=== PATIENT | male | born 1960 | race Caucasian/White ===

== ENCOUNTER 2023-11-11 06:41 | Day surgery (SDC) | payer OTHER, SELFPAY ==
[2023-09-23 11:46] VITALS: BMI 26.4
[2023-09-23 12:16] LABS: % Basophils 0.3 % (0-2); % Eosinophils 2.9 % (0-6); % Immature Granulocytes 0.3 % (0-0.5); % Lymphocytes 22.4 % (20.5-51.1); % Monocytes 8.6 % (1.7-9.3); % Neutrophils 65.5 % (42.2-75.2); Absolute Eosinophils 0.2 10^3/uL (0-0.7); Absolute Lymphocytes 1.5 10^3/uL (1.2-3.4); Absolute Monocytes 0.6 10^3/uL (0.1-0.6); Absolute Neutrophils 4.5 10^3/uL (1.4-6.5); Hematocrit 42.3 % (39.0-52.0); Hemoglobin 14.6 g/dL (13.0-18.0); Mean Corp Hgb Conc. 34.5 g/dL (33.0-37.0); Mean Corpuscular Hgb 30.9 pg (27.0-31.0); Mean Corpuscular Volume 89.6 fL (80.0-94.0); Mean Platelet Volume 9.5 fL (7.4-10.4); Nucleated Red Blood Cells % 0 % (-); Platelet Count 237 10^3/uL (130-400); Red Blood Cell Count 4.72 10^6/uL (4.70-6.10); Red Cell Dist. Width 12.6 % (11.5-14.5); White Blood Cell Count 6.9 10^3/uL (4.8-10.8)
[2023-09-23 12:23] LABS: INR 1.16; PT 15.1 Sec (11.4-14.6)
[2023-09-23 12:38] LABS: ALT (SGPT) 41 U/L (0-50); AST (SGOT) 32 U/L (17-59); Albumin 4.4 g/dl (3.5-5.0); Alkaline Phosphatase 69 U/L (38-126); Blood Urea Nitrogen 15 mg/dl (9-20); Calcium 9.2 mg/dl (8.4-10.2); Carbon Dioxide 22 mmol/L (22-30); Chloride 102 mmol/L (98-107); Estimated Creatinine Clearance 84 ml/min; Glucose 125 mg/dl (70-99); Magnesium 2.2 mg/dl (1.6-2.3); Potassium 4.2 mmol/L (3.5-5.1); Sodium 138 mmol/L (135-145); Total Bilirubin 0.8 mg/dl (0.2-1.3); Total Protein 7.2 g/dl (6.3-8.2); eGFR > 60.00
--- NOTE | 2023-09-23 13:04 | HPS.HSE ---
Family Physician
-
Family Physician: NAOMI Guzman
Chief Complaint
-
Paroxysmal atrial fibrillation.
History of Present Illness
The patient is a 63 year old male presenting today for paroxysmal atrial fibrillation. The patient describes intermittent heart palpitations secondary to this diagnosis. He previously underwent 2 unsuccessful cardioversions for his atrial
fibrillation. He is on current pharmacological therapy with Metoprolol Succinate. He takes Eliquis for a [id number] of 1. He notes that his current palpitations can greatly interfere with his activities of daily living and do overall impact his
quality of life. He is interested in pursuing pulmonary vein isolation for further arrhythmia management. He denies any current complaints today such as chest pain, shortness of breath, nausea, vomiting, diarrhea, lightheadedness, dizziness, cough,
sore throat, or fever.
Medical History
Past Medical History
Past Medical History: Reports Other
Additional Past Medical History:
1. Paroxysmal atrial fibrillation, status post cardioversion x2; pharmacological therapy with Metoprolol Succinate, oral anticoagulation with Eliquis.
2. Hyperlipidemia.
3. Venous varicosities.
4. GERD.
5. Remote GI ulcer without bleed.
6. Colon polyps.
7. Diverticulosis.
8. Hemorrhoids.
9. Subdural hematoma 09/2014.
10. Osteoarthritis.
11. Basal cell carcinoma, left cheek, status post excision.
Past Surgical History: Reports Other
Additional Past Surgical History:
1. Cardioversion x2.
2. Left inguinal hernia repair.
3. Dental extractions and implantations.
4. Colonoscopy.
Social History
Tobacco: Non-smoker
Alcohol: Occasional
Personal:
Living: Other (He lives in a 2 story home with his and [id number]. )
Family History
Family History: Not pertinent
Allergies / Home Medications
Allergy/Medication List:
Home medications:
1. Eliquis 5 mg p.o. twice a day.
2. Atorvastatin 20 mg p.o. daily.
3. Cholecalciferol 50 mcg p.o. daily.
4. Lycopene 10 mg p.o. daily.
5. Metoprolol Succinate 12.5 mg p.o. twice a day.
Allergies: No known allergies.
Review of Systems
-
A 12 point ROS was completed and negative except as noted: Yes
Physical Exam
Vital Signs
Blood pressure 119/73. Heart rate 73. Respirations 18. Pulse ox 97% on room air.
Height 5 feet, 10 inches. Weight 83.6 kg. BMI 26.4.
Physical Exam
General: Well Developed, Well Nourished and No Apparent Distress
HEENT: NormoCephalic, Moist mucous membranes, Atraumatic and PERRLA
Respiratory: Clear
Cardiac: Regular Rhythm
GI: Soft, Non Tender and Non Distended
Musculoskeletal: No Edema and Normal Gait & Station
Skin: Warm and Dry
Neuro: AO x 3 and Nonfocal/grossly intact
Laboratory Results
-
09/23/23 11:55
09/23/23 11:55
Laboratory Results
PT 15.1 Sec (11.4-14.6) H 09/23/23 11:55
INR 1.16 09/23/23 11:55
Total Bilirubin 0.8 mg/dl (0.2-1.3) 09/23/23 11:55
AST 32 U/L (17-59) 09/23/23 11:55
ALT 41 U/L (0-50) 09/23/23 11:55
Alkaline Phosphatase 69 U/L (38-126) 09/23/23 11:55
Blood type A negative.
EKG 09/23/2023: Normal sinus rhythm. Inferior infarct, cited on or before August 22, 2023.
Chest CT 09/23/2023: Conventional pulmonary venous anatomy. The esophagus passes posterior to the junction of the posterior wall of the left inferior pulmonary vein with the posterior left atrial wall. No evidence for left atrial thrombus.�
Echocardiogram 08/08/2023: Normal left ventricular size, wall thickness and systolic function.�No regional wall motion abnormalities are seen. Estimated ejection fraction is 55- 60%. Normal diastolic function.
Impression/Plan
-
IMPRESSION/PLAN:
1. Paroxysmal atrial fibrillation: The patient is in need of pulmonary vein isolation with Dr. Asher Chairez on 09/25/2023. The benefits and risks of the procedure have been explained to the patient. The patient understands these risks and wishes to
proceed. He will not be required to undergo a pre-procedural transesophageal echocardiogram as he has been compliant with his home oral anticoagulation. He is aware to hold his Eliquis the night before and morning of his procedure.
[2023-10-23 07:20] VITALS: BMI 27.3
[2023-10-23 08:11] LABS: % Basophils 0.6 % (0-2); % Eosinophils 3.5 % (0-6); % Immature Granulocytes 0.6 % (0-0.5); % Lymphocytes 27.9 % (20.5-51.1); % Monocytes 10.3 % (1.7-9.3); % Neutrophils 57.1 % (42.2-75.2); Absolute Eosinophils 0.2 10^3/uL (0-0.7); Absolute Lymphocytes 1.4 10^3/uL (1.2-3.4); Absolute Monocytes 0.5 10^3/uL (0.1-0.6); Mean Corp Hgb Conc. 34.9 g/dL (33.0-37.0); Mean Corpuscular Hgb 30.8 pg (27.0-31.0); Mean Corpuscular Volume 88.3 fL (80.0-94.0); Mean Platelet Volume 9.4 fL (7.4-10.4); Nucleated Red Blood Cells % 0 % (-); Platelet Count 249 10^3/uL (130-400); Red Blood Cell Count 4.87 10^6/uL (4.70-6.10); Red Cell Dist. Width 12.7 % (11.5-14.5); White Blood Cell Count 5.2 10^3/uL (4.8-10.8)
[2023-10-23 08:16] LABS: PT 14.4 Sec (11.4-14.6)
[2023-10-23 08:28] LABS: ALT (SGPT) 38 U/L (0-50); AST (SGOT) 30 U/L (17-59); Albumin 4.3 g/dl (3.5-5.0); Alkaline Phosphatase 62 U/L (38-126); Blood Urea Nitrogen 15 mg/dl (9-20); Calcium 9.6 mg/dl (8.4-10.2); Carbon Dioxide 27 mmol/L (22-30); Chloride 100 mmol/L (98-107); Estimated Creatinine Clearance 84 ml/min; Glucose 108 mg/dl (70-99); Magnesium 2.4 mg/dl (1.6-2.3); Potassium 4.1 mmol/L (3.5-5.1); Sodium 137 mmol/L (135-145); eGFR > 60.00
[2023-11-11] VITALS (14 sets, daily range): BP systolic 89–147; BP diastolic 47–92; BMI 25.8
[2023-11-11 09:00] LABS: ACT-LR - POC 263 Seconds (116-155)
[2023-11-11 09:20] LABS: ACT-LR - POC 321 Seconds (116-155)
[2023-11-11 09:44] LABS: ACT-LR - POC 332 Seconds (116-155)
[2023-11-11 10:06] LABS: ACT-LR - POC 335 Seconds (116-155)
[2023-11-11 10:42] LABS: ACT-LR - POC 229 Seconds (116-155)
--- NOTE | 2023-11-11 11:57 | ITS.CL.ABL ---
[facility] - Ablation
Ablation
Procedure Report:
Primary Care: Concepcion Farley NP
Procedure Date: 11/11/2023
Patient History:
Pleasant 63-year-old male past medical history significant for dyslipidemia and symptomatic paroxysmal atrial fibrillation.
Indication:
Symptomatic paroxysmal atrial fibrillation
Failed cardioversion with eventual success (times 05 June 2023)
Arrhythmia Specific History:
Prior Medical Therapies for Rate and Rhythm Control:
[ ] Beta-soni
[ ] Calcium channel-soni
[ ] Amiodarone
[ ] Dronederone
[ ] Sotalol
[ ] Flecainide
[ ] Dofetilide
[ ] Options limited by bradycardia
[ ] Options limited by comorbid renal disease
Prior Procedural Therapies for AF/AFL:
X Cardioversion
[ ] Pulmonary Vein Isolation
[ ] Posterior Wall Isolation
[ ] Additional lines (Specify)
[ ] Surgical Kolb-MAZE or PVI (Specify)
Procedure Performed:
X AF ablation procedure (30629) -- includes LA/CS pacing, trans-septal, 3D mapping, + ICE
[ ] +IV drug (00080)
[ ] +Other Arrhythmia (64428)
[ ] +Other AF Line/ablation (95267)
Risks and expected recovery has been explained in detail. Alternative options have been explored, and in a shared-decision making fashion we have decided that this was the most appropriate procedure.
Method
NPO status confirmed. Grounding pad applied. Defibrillator pads applied. Continuous surface ECG, pulse oximetry, and blood pressure were monitored. Procedure was performed under general anesthesia, with anesthesia services.
Both groins were clipped, prepped with Chloraprep, and draped in sterile fashion. Time out was called. Local anesthesia administered with bupivacaine. The right and left femoral veins were accessed for catheter placement, using ultrasound guidance,
micro-puncture needle/wire, and modified seldinger technique. 3 sheaths were placed. The following catheters were used:
[ ] Tacticath SE (D/F Curve) ablation catheter
X Viewflex 9Fr ICE catheter
X Inquiry decapolar 6Fr diagnostic catheter
[ ] CRD Hex 6Fr
X Arctic Front Advance Cryoballoon (23mm)
X Achieve Advance mapping catheter (15mm)
[ ] Acuson AcuNav 8 Fr ICE catheter
[ ]Other: [ ]
Intracardiac ultrasound (ICE) was carefully advanced into the right atrium to guide sheath placement over a J-wire, catheter placement, guide trans-septal puncture, identify potential complications, identify anatomic structures and ensure proper
contact between ablation catheter and tissue.
Heparin was given prior to trans-septal puncture. Heparin was given to achieve and maintain a target ACT of 300-400 seconds.
Trans-septal access was performed under ICE guidance. The trans-septal puncture was performed with a SafeSept wire through a Brockenbrough needle assembly. The wire was visualized as it entered the LSPV. The Brockenbrough needle assembly, SafeSept
wire and sheath dilator were removed under negative pressure. The Protrack pigtail wire was advanced through the sheath into the left atrium with position confirmed on ICE and fluoroscopy. The fixed curve long sheath was exchanged from the steerable
sheath over the Protrack wire and was advanced into the LA and positioned at the mitral annulus.
ICE and 3D mapping was performed to identify relevant cardiac structures. A careful 3D map was created to assess for regions of low-voltage and abnormal electrogram signals. Additional mapping was performed as outlined below. See synopsis for
details.
Cryoballoon ablation was performed using freeze/thaw/freeze at 2-4 minute intervals. Ablation targets included Cryoballoon temperatures of -30 degrees @ 30 seconds with goal temp typically between -40 and -50 degrees Celsius with time to effect when
measurable recorded to guide duration of application and need for repeat ablation in each vein. Esophageal temperature monitored throughout intervention. Phrenic nerve pacing performed during cryoapplication in the right pulmonary veins to monitor
for any evidence of PNI requiring application termination. See synopsis and procedure log for details.
Catheter and sheath were removed from the left atrium and post-ablation intracardiac echo evaluation was consistent with pre-ablation with no changes and no pericardial effusion and there is no left atrial thrombus or left ventricle thrombus seen.
Electrophysiology study was performed. Hemostasis was obtained with figure of 8 stitch for each groin with manual pressure. Protamine was used for reversal.
Estimated Blood Loss
5-10 mL
Complications
None
Procedure Synopsis:
The patient entered the room in atrial fibrillation. Three-dimensional mapping with EnSite system was performed with reconstruction of left atrium utilizing Achieve catheter. Intracardiac ultrasound and EnSite was used for guidance of ablation and
placement of the Cryoballoon. PV seal was confirmed with pressure waveform and ICE. Using the Achieve catheter, it was confirmed that pulmonary veins were active. All pulmonary veins were isolated successfully using Cryoballoon ablation using
freeze/thaw/freeze cycles at 2-4-minute intervals, with good [id number] of isolation. During the right-sided PV ablation, phrenic nerve pacing was performed to assess the phrenic nerve strength and the phrenic nerve was intact throughout the
right-sided ablation. SR restored with cryo ablation (spontaneous return to SR). Pre- and post-pulmonary vein recording and pacing from the Achieve catheter was utilized to ensure complete pulmonary vein isolation. LA voltage map created at
procedure conclusion confirming WACA of bilateral PVs.
Fluoroscopy: 13.2 minutes; 33.6 mGy; DAP 4.25
Contrast used: 0 cc
Baseline Intervals:
Rhythm: AF
QRS: 74 ms
QT: 278 ms
QTc: 435 ms
Post-Procedure Intervals:
NV: 134 ms
QRS: 81 ms
QT: 251 ms
QTc: 320 ms
AVWB: 260 ms
AERP: 600/240 ms
Recommendations
- Bedrest with straight-leg precautions as ordered
- Anticipate same day discharge if patient meeting clinical metrics
- Resume home medications as indicated
- Ok to resume anticoagulation tonight if patient and groin sites stable
- PPI daily for 30 days
- Plan for follow-up in office in 3 months
Asher Chairez
Clinical Cardiac [employer] Business Intelligence Developer
cc: Concepcion Farley NP
--- NOTE | 2023-11-11 13:30 | W.PN.UPDATE ---
Update Note
Progress Note Update
Pt seen post PVI. Bilat groin sites with vascade closure, no ht/bleeding. OOB to bathroom. Post EKG NSR, no acute changes. Resume eliquis tonight. Continue other meds as before. Followup with Dr. Chairez as scheduled. Home today if groin sites/tele
remain stable.
== END 2023-11-11 14:00 | disposition home or self-care (01) ==
LOC: CATH 06:41
PROVIDERS: ATTENDING PHYSICIAN Internal Medicine Cardiovascular Disease; FAMILY PHYSICIAN Registered Nurse
DX: I48.0 Paroxysmal atrial fibrillation (principal); E78.5 Hyperlipidemia, unspecified; I83.90 Asymptomatic varicose veins of unspecified lower extremity; K21.9 Gastro-esophageal reflux disease without esophagitis; Z86.010 Personal history of colon polyps; K57.90 Diverticulosis of intestine, part unspecified, without perforation or abscess without bleeding; K64.9 Unspecified hemorrhoids; Z86.73 Personal history of transient ischemic attack (TIA), and cerebral infarction without residual deficits; M19.90 Unspecified osteoarthritis, unspecified site; Z85.828 Personal history of other malignant neoplasm of skin; Z79.01 Long term (current) use of anticoagulants
CPT/HCPCS: C1766; C1894; C1733; C1730; C1892; C1893; C1759; 36415; 75572; 80053; 83735; 85025; 85347; 85610; 86850; 86900; 86901; 93005; 93656; C1760; Q9967

== ENCOUNTER 2024-12-21 06:21 | Day surgery (SDC) | payer OTHER, SELFPAY | END 2024-12-21 10:10 | disposition home or self-care (01) | LOC: GI 06:21 | PROVIDERS: ATTENDING PHYSICIAN Student in an Organized Health Care Education/Training Program | DX: Z12.11 Encounter for screening for malignant neoplasm of colon (principal); K62.89 Other specified diseases of anus and rectum; K63.5 Polyp of colon; K63.9 Disease of intestine, unspecified; Z86.0100 Personal history of colon polyps, unspecified; Z80.0 Family history of malignant neoplasm of digestive organs | CPT/HCPCS: 45380; 88305 ==

== ENCOUNTER → 2025-03-02 06:57 | Outpatient (REF) | payer SELFPAY | LOC: RAD 06:57 | PROVIDERS: ATTENDING PHYSICIAN Internal Medicine Cardiovascular Disease; FAMILY PHYSICIAN Student in an Organized Health Care Education/Training Program | DX: E78.2 Mixed hyperlipidemia (principal) | CPT/HCPCS: 75571 ==

== ENCOUNTER → 2025-07-18 17:18 | Outpatient (REF) | payer OTHER, SELFPAY | LOC: RAD 17:18 | PROVIDERS: ATTENDING PHYSICIAN Family Medicine | DX: M25.561 Pain in right knee (principal); M25.562 Pain in left knee | CPT/HCPCS: 73564 ==